=== PATIENT | female | born 1950 | race Caucasian/White ===

== ENCOUNTER 2023-09-16 16:36 | Emergency (ER) | payer MEDICARE ==
--- NOTE | 2023-09-16 16:39 | ERPHSYRPT ---
- History of Present Illness Time Seen by Provider: 09/16/23 16:38 Source: patient, EMS, old records Exam Limitations: no limitations Physician History: This is a 73-year-old white female who was brought into the emergency department by the ambulance service. She was at her [employer] office prior to arrival and slipped and fell onto the concrete hitting her head as well as the left anterior knee. The office called the ride assembly supervisor service to bring the patient here for evaluation of her head and knee. Patient is on anticoagulation therapy. Patient denies chest pain. Patient denies shortness of breath. She has no abdominal pain. Patient's did say that she has been having episodes of falling and they are in the process at this time of seeing both pain specialist and obtaining physical therapy consultation/appointments. Occurred: just prior to arrival, this afternoon Reason for Fall: tripped Injuries/Pain Location: head, lower extremity (Left anterior knee) Loss of Consciousness: no loss of consciousness Quality: aching Severity of Pain-Max: mild Severity of Pain-Current: mild Modifying Factors: Improves With: movement Associated Symptoms (Fall): extremity injury (Left anterior knee) Travel Risk - International Travel Have you traveled outside of the country in past 3 weeks: No - Coronavirus Screening Are you exhibiting any of the following symptoms?: No Close contact with a COVID-19 positive Pt in past 14-21 Days: No - Review of Systems Constitutional: No Symptoms Eyes: No Symptoms Ears, Nose, & Throat: No Symptoms Respiratory: No Symptoms Cardiac: No Symptoms Abdominal/Gastrointestinal: No Symptoms Genitourinary Symptoms: No Symptoms Musculoskeletal: Injury (Anterior knee on the left) Skin: No Symptoms Neurological: Headache (Mild posterior) Psychological: No Symptoms Endocrine: No Symptoms Hematologic/Lymphatic: No Symptoms Immunological/Allergic: No Symptoms - Past Medical History Pertinent Past Medical History: Yes - Past Surgical History Past Surgical History: Yes - Nursing Vital Signs Nursing Vital Signs: Initial Vital Signs Temperature 97.9 F 09/16/23 16:37 Pulse Rate 94 H 09/16/23 16:37 Blood Pressure 145/78 09/16/23 16:37 O2 Sat by Pulse Oximetry 94 L 09/16/23 16:37 Pain Scale Pain Intensity 5 - Egnar Coma Score Best Eye Response (Egnar): (4) open spontaneously Best Verbal Response (Egnar): (5) oriented Best Motor Response (Egnar): (6) obeys commands Luzmaria Total: 15 - Physical Exam General Appearance: no apparent distress, alert, anxiety Head Injury: no evidence of injury Eye Exam: PERRL/EOMI, eyes nml inspection ENT Exam: airway nml, nml ext.inspection Neck Exam: supple, trachea midline, full range of motion, normal alignment, normal inspection Respiratory/Chest Exam: normal breath sounds, No chest tenderness, No respiratory distress, No ecchymosis, No crepitus Cardiovascular Exam: normal heart sounds, regular rate/rhythm Gastrointestinal Exam: soft, normal bowel sounds, No tenderness Rectal Exam: not done Back Exam: normal inspection, normal range of motion, No CVA tenderness, No vertebral tenderness Extremity Exam: normal inspection, normal range of motion, pelvis stable, tenderness (Mild tenderness left anterior knee. Full range of motion) Neurologic Exam: alert, oriented x 3, cooperative, vba developer II-XII nml as tested, nor mal mood/affect, nml cerebellar function, nml station & gait, sensation nml Skin Exam: normal color, warm, dry SpO2 Interpretation: normal - Course Nursing assessment & vital signs reviewed: Yes Ordered Tests: Active Orders 24 hr Category Date Time Status HEAD WITHOUT CONTRAST [CT] Stat Exams 09/16/23 17:22 Taken KNEE (3 VIEWS) Stat Exams 09/16/23 17:23 Taken - Progress Progress: improved Progress Note: 09/16/23 18:36 Patient's medical issue is 1 of low complexity. The level complex in the workup performed is based on review of the patient's past medical history, review the patient's medication list, review the patient drug allergy list, history present illness and physical findings on examination. The workup in this patient includes x-ray of the left knee and CT scan of the head without contrast. I interpreted the x-ray of the left knee. The final impression is pending by the radiologist. My interpretation is no acute fracture or dislocation. The hardware appears to be intact. CAT scan of the head without contrast was interpreted by the radiologist and I reviewed the impression. There is no evidence of any acute intracranial abnormality. It is a normal CT scan of the head without contrast. Counseled pt/family regarding: diagnosis, need for follow-up Medical Desision Making - Independent Historian Additional History obtained from: Spouse - Diagnostic Testing Diagnostic test were ordered, analyzed, and reviewed by me: Yes Radiological Interpretation: Interpreted by me, Reviewed by me, Teleradiologist Report - Risk of complications Low Risk: Low risk of morbidity from additional dx testing or treatment - Departure Departure Disposition: Home Clinical Impression: Fall with no significant injury Condition: Stable Critical Care Time: No Referrals: LIDYA MILLER [ACTIVE STAFF] - Follow up/PCP as directed Additional Instructions: Take medication as prescribed. Call your primary care provider tomorrow, 09/17/2023 to make arranges for follow-up appointment in the next 3 to 5 days for possible referral to physical therapy or short-term extended care facility if indicated.
[2023-09-16 17:01] VITALS: PULSE 94; TEMP 97.9
[2023-09-16 18:03] VITALS: BP 108/56; O2SAT 93
--- NOTE | 2023-09-17 08:32 | XRAY ---
Indication: Head injury following fall. Blood thinner therapy. Multiple contiguous axial images obtained through the head without contrast. Comparison: None Normal appearing brain parenchyma, ventricles, and bony calvarium for patient's age. Visualized paranasal sinuses and mastoid air cells are clear. Impression: Normal CT head without contrast exam.
--- NOTE | 2023-09-17 08:32 | XRAY ---
Indication: Pain following fall. Comparison: None 3 view left knee demonstrates osteopenia, remote distal femur shaft fracture, total knee arthroplasty with intact prosthesis, postsurgical tunnel radiolucency distal femur, and tiny fabella. No other bony, articular, or soft tissue abnormalities.
== END 2023-09-16 18:51 | disposition home or self-care (01) ==
LOC: ED 16:36
DX: Z04.3 Encounter for examination and observation following other accident (principal); R29.6 Repeated falls; R51.9 Headache, unspecified; M25.562 Pain in left knee
CPT/HCPCS: 70450; 73562; 99283